=== PATIENT | female | born 1990 | race Two or more races ===

== ENCOUNTER → 2017-05-01 | Outpatient (CLI) | payer BC | LOC: M WUC 09:16 | PROVIDERS: ATTEND Family Medicine | DX: L68.0 Hirsutism (principal) ==

== ENCOUNTER → 2017-06-01 | Outpatient (REF) | payer BC ==
[2017-06-01 12:17] LABS: FREE T4 1.03 NG/DL (0.76-1.46)
[2017-06-01 12:27] LABS: PROLACTIN 16.7 NG/ML
== END ==
LOC: M SFHCPLAZ 08:37
PROVIDERS: ATTEND Family Medicine
DX: L68.0 Hirsutism (principal)
CPT/HCPCS: 36415; 83498; 84146; 84439; 84443; G0123